=== PATIENT | female | born 1930 | race Caucasian/White ===

== ENCOUNTER 2016-08-15 08:51 | Day surgery (SDC) | payer OTHER ==
[2016-08-14 14:44] VITALS: BMI 25.2
[2016-08-15 12:27] VITALS: TEMP 98.1
[2016-08-15 14:15] VITALS: BP 126/92; PULSE 66
== END 2016-08-15 13:30 | disposition home or self-care (01) ==
LOC: JASU-ENDO 08:51
PROVIDERS: ATTEND Internal Medicine Gastroenterology
PROC: 0DJ68ZZ Inspection of Stomach, Via Natural or Artificial Opening Endoscopic (ICD-10-PCS; principal; 2016-08-15 11:00)
DX: D3A.010 Benign carcinoid tumor of the duodenum (principal)